=== PATIENT | male | born 1950 | race Caucasian/White ===

== ENCOUNTER → 2019-04-16 10:12 | Outpatient (BNVA) | payer MEDICARE, SELFPAY | PROVIDERS: Family Provider Nurse Practitioner Family; PCP Nurse Practitioner Family; Visit Provider Nurse Practitioner Family | DX: R97.20 Elevated prostate specific antigen [PSA] (principal) | CPT/HCPCS: 81001 ==

== ENCOUNTER → 2020-06-16 10:35 | Outpatient (BNVA) | payer OTHER, SELFPAY | PROVIDERS: Family Provider Nurse Practitioner Family; PCP Nurse Practitioner Family; Visit Provider Urology | DX: C61 Malignant neoplasm of prostate (principal); N52.31 Erectile dysfunction following radical prostatectomy | CPT/HCPCS: 81003; 84153 ==

== ENCOUNTER → 2020-12-22 11:04 | Outpatient (BNVA) | payer OTHER, SELFPAY | PROVIDERS: Family Provider Nurse Practitioner Family; PCP Nurse Practitioner Family; Visit Provider Nurse Practitioner Family | DX: C61 Malignant neoplasm of prostate (principal) | CPT/HCPCS: 81003; 84153 ==